=== PATIENT | female | born 1955 | race Caucasian/White ===

== ENCOUNTER → 2017-10-15 | Outpatient (CLI) | payer OTHER ==
[~2017-10-15] VITALS: Ht 172.7 cm; Wt 98.3 kg
[~2017-10-15] MED LIST: AMITRIPTYLINE H25 M2 PO; ARIPIPRAZOLE10 MG PO; BUPROPION HCL150 M1 PO; CELEXA20 MG PO; FLUTICASONE PRO16 GM; HYDROCODON-ACE1 EAC8 PO; MOBIC15 MG PO; NEURONTIN 300300 M1 PO; SUMATRIPTAN SU100 MG PO; TRAZODONE HCL100 MG PO; VENTOLIN HFA 1818 GM INH; ZANAFLEX4 MG PO
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
[2017-10-15 10:42] VITALS: BP 128/64
== END | disposition home or self-care (01) ==
LOC: PAIN 06:58
DX: M51.16 Intervertebral disc disorders with radiculopathy, lumbar region (principal); G43.909 Migraine, unspecified, not intractable, without status migrainosus; F32.9 Major depressive disorder, single episode, unspecified; G89.4 Chronic pain syndrome; J45.909 Unspecified asthma, uncomplicated; M06.9 Rheumatoid arthritis, unspecified; F17.200 Nicotine dependence, unspecified, uncomplicated; Z98.890 Other specified postprocedural states; Z68.33 Body mass index [BMI] 33.0-33.9, adult

== ENCOUNTER → 2017-10-29 | Outpatient (CLI) | payer OTHER ==
[~2017-10-29] VITALS: Ht 172.7 cm; Wt 96.2 kg
--- NOTE | ~2017-10-29 | HPC ---
[facility] [place] [address] [address] PAIN MANAGEMENT CONSULTATION Name: KLEIN,CECILE C Room #: REG [facility] Jolley#: [id number] Admission: 10/29/17 Attend Phys: Azeb Monterroso MD Discharge: Date of : 57 Report #: [id number] THIS REPORT FOR: //name// CC: Curt Guerra DATE OF SERVICE: 10/29/2017 FOLLOWUP COMPLAINT: Pain in the right back and down into the leg. FOLLOWUP HISTORY: The patient is a 62-year-old female who has been seen in the pain clinic because of pain with radiation down into her posterior back leg. She has undergone an epidural steroid injection. She gleaned benefits from this. Since the last injection she has noticed that her pain has improved. She is able to be engaged in more activities of daily living with less problem. She continues to have some pain in the right low back area with pain radiating down into the right leg. There is a burning, shooting, throbbing sensation. Pain is a 5. Notes that walking and standing can exacerbate her pain. Use of her current medications and heat are efficacious. She has had no complication from the procedures. She has returned again today for an injection. She is able to ambulate a bit better. No complications from the last procedure. Continues to have some pain down in the right buttocks. Notes that her hamstring continues to have some numbness, tingling and weakness. ALLERGIES: No known drug allergies. MEDICATIONS: Review of her current medications include flecainide 16 grams spray suspension, aripiprazole 10 mg, bupropion SR 150 mg b.i.d., Hydrocodone 7.5/325 q.6-8 hours t.i.d., trazodone 100 mg at bedtime, Celexa 20 mg daily, Zanaflex 4 mg daily, Meloxicam 15 mg daily, sumatriptan 100 mg p.r.n., albuterol inhaler 2 puffs p.r.n. every 6 hours as needed. PAIN CLINIC ASSESSMENT: 1. The patient is being treated for rheumatoid arthritis. 2. Height 5 feet 8 inches tall, weight is 222 pounds, BMI is 32. 3. Vital Signs: Blood pressure 140/71, heart rate 63, respiratory rate 20, room air saturation 96%. 4. Pain intensity is a 5/10. 5. Fall risk. The patient has not fallen in the last 3 months, but she does need some assistance with walking. She has been in a wheelchair. 6. The patient is not on a blood thinner. 7. The patient is not being treated for hypertension. 8. Opioid greater than 6 weeks. The patient is not receiving opioids from our clinic on a regular basis. 9. Risk assessment tool. [address] [address] PAIN MANAGEMENT CONSULTATION Name: CECILE KLEIN Jason Room #: REG [facility]#: [id number] Admission: 10/29/17 Attend Phys: Azeb Monterroso MD Discharge: Date of : 57 Report #: [id number] 10. Functional assessment tool. 11. Recreational drugs. The patient does smoke cigarettes on a daily basis. 12. Denies use of recreational drugs. 13. Alcohol. The patient does not drink alcoholic beverages. PHYSICAL EXAMINATION: GENERAL: The patient is a white female. She is in a wheelchair. Appearance: The patient looks her stated age. Orientation: The patient is alert and oriented x 3. Affect: The patient's affect is appropriate. HEENT: Generally unremarkable. HEART: Regular rate. ABDOMEN: Nontender. BACK: The patient is in a wheelchair, continues to have some pain and discomfort in the L5-S1 dermatomal distribution. EXTREMITIES: Continues to carry her right arm in a guarded position. Soreness involving the right shoulder area. The patient is thought to maybe have a partial rotator cuff tear. Right leg somewhat medially positioned. Less abnormal, then when we initially saw her. The patient has drop foot with inability to dorsiflex her right foot, has some difficulty straightening her leg. The patient is unable to walk without assistance. Some decreased sensation to light touch, pinprick in the lower extremities above the knee on the right side. Muscle bulk appears symmetrical. Unable to rotate her foot below the ankle. IMPRESSION: 1. Right lower extremity pain with L5-S1 nerve root distribution and history of trauma, nerve irritation and clinical findings of drop foot on the right. Internal rotation of the right foot with inability to dorsiflex her right foot. 2. Migraines. 3. Possible partial rotator cuff tear on the right shoulder. 4. Depression. 5. Chronic pain syndrome. 6. Asthma. 7. Sleep apnea. 8. Rheumatoid arthritis. 9. Anxiety disorder. RECOMMENDATIONS: We discussed treatment options with the patient. At this juncture, overall, she feels that things have improved after last injection. She has returned today for another treatment course. She has continued to have some pain and discomfort in the right L5-S1 dermatomal distribution. Overall, she has noticed some improvement in her pain. She has had no complications from the procedure. She would like to proceed with another injection. PROCEDURE NOTE: We again reviewed the possible complications of the procedure. They include, but are not limited to infection, increased muscle soreness, [facility] [address] [address] PAIN MANAGEMENT CONSULTATION Name: CECILE KLEIN Room #: [facility] [id number] Admission: 10/29/17 Attend Phys: Azeb Monterroso MD Discharge: Date of : 57 Report #: [id number] headache, bleeding, nerve damage, improvement in pain, no improvement in pain or worsening of pain. The patient elects to proceed. PROCEDURE NOTE: The patient was helped to the examination table. She was placed in the prone position. Her back was sterilely prepped with a Betadine solution. This area was then infiltrated with 0.25% bupivacaine. The target area was noted. Fluoroscopy was used to position the needle using anterior and posterior as well as lateral foot positioning. After appropriate numbing of the area with 0.25% bupivacaine a 17-gauge Tuohy with loss of resistance technique was used to gain access to the epidural space. There was no CSF, heme or paresthesia. Total of 80 mg Depo-Medrol, 40 mg triamcinolone and 2 mL of 0.25% bupivacaine was injected. The patient tolerated the procedure well. There were no complications. She remained in the pain clinic for an appropriate amount of time. Her pain score was decreased from 5-2 at the time of departure. She will follow up in the future as needed. We would like to thank you for letting us participate in her care. We hope she continues to improve. <ELECTRONICALLY SIGNED> By: Azeb Monterroso MD 01/28/18 0823 [id number] 2046 Azeb Monterroso MD /[place]
[2017-10-29 10:13] VITALS: BP 140/71
== END | disposition home or self-care (01) ==
LOC: PAIN 07:10
DX: M54.16 Radiculopathy, lumbar region (principal); G89.4 Chronic pain syndrome; G43.909 Migraine, unspecified, not intractable, without status migrainosus; F32.89 Other specified depressive episodes; J45.909 Unspecified asthma, uncomplicated; G47.33 Obstructive sleep apnea (adult) (pediatric); M06.9 Rheumatoid arthritis, unspecified; F41.8 Other specified anxiety disorders; F17.210 Nicotine dependence, cigarettes, uncomplicated; Z98.890 Other specified postprocedural states; Z79.891 Long term (current) use of opiate analgesic